=== PATIENT | male | born 1970 | race African-American/Black ===

== ENCOUNTER 2025-02-26 08:41 | Outpatient (CLI) | payer OTHER, SELFPAY ==
--- NOTE | ~2025-02-26 | CT_ITS ---
EXAMINATION: CT sinus wo con DATE: 02/26/2025 08:56 INDICATION: Chronic sinusitis TECHNIQUE: Computed tomography (CT) of the paranasal sinuses was performed without intravenous contra st. The dose-length product was 292.39 mGy-cm. Automated exposure control and iterative reconstructio n technique were employed. COMPARISON: None FINDINGS: No significant mucosal thickening. No air-fluid levels. No mucoperiosteal reaction. There i s nasal septal deviation to the right. Ostiomeatal units are patent. Mastoid air cells are pneumatize d. IMPRESSION: 1. No significant sinus disease. Reviewed, dictated and finalized at location A.
== END 2025-02-26 08:42 | disposition home or self-care (01) ==
LOC: MICIMG 08:41
PROVIDERS: PCP Internal Medicine; Visit Provider Otolaryngology Otolaryngology/Facial Plastic Surgery
DX: J32.9 Chronic sinusitis, unspecified (principal)
CPT/HCPCS: 70486